=== PATIENT | female | born 1965 ===

== ENCOUNTER 2017-09-12 09:57 | Outpatient (CLI) | payer OTHER | END 2017-09-12 09:58 | disposition home or self-care (01) | LOC: BICULT 09:57 | PROVIDERS: ATTEND Internal Medicine Gastroenterology | DX: E83.119 Hemochromatosis, unspecified (principal); K76.0 Fatty (change of) liver, not elsewhere classified; Z12.11 Encounter for screening for malignant neoplasm of colon; K80.20 Calculus of gallbladder without cholecystitis without obstruction; E53.8 Deficiency of other specified B group vitamins; R94.5 Abnormal results of liver function studies | CPT/HCPCS: 76705 ==